=== PATIENT | male | born 1960 | race Two or more races ===

== ENCOUNTER 2024-03-13 12:28 | Emergency (ER) | payer BC, SELFPAY ==
[2024-03-13 12:29] VITALS: BMI 29.6
--- NOTE | 2024-03-13 12:32 | EKG_ITS ---
[facility] Test Date: 2024-03-13 Pat Name: JAY MODI Department: Room: - Gender: Male Galley Hand: : 1960 Requested By: ED Temporary Provider Order Number: [id number] Reading MD: ED Temporary Provider Measurements Intervals [place] Rate: 86 P: 8 OH: 132 QRS: -18 QRSD: 108 T: 29 QT: 335 QTc: 401 Interpretive Statements SINUS RHYTHM Compared to ECG 04/22/2022 08:46:17 No significant changes /store/S0/[id number].pdf
[2024-03-13 13:45] VITALS: BP 135/89; PULSE 97; RESP 18; TEMP 37.4; O2SAT 98
--- NOTE | 2024-03-13 13:58 | XR_ITS ---
Examination: PA lateral chest 2 views Chest upright PA lateral 2 views Exam date and time: March 13, 2024 1431 hours INDICATIONS: Chest pain today. FINDINGS: Normal heart size Lungs are clear. The osseous structures are intact IMPRESSION: No active disease
--- NOTE | 2024-03-13 13:58 | PD.EDRME ---
Rapid Medical Screening Exam [facility] Arrival date/time: 03/13/24 12:28 63-year-old male history of diabetes presents to the emergency department with complaints of left upper chest pain began about 4 days ago mainly in his left shoulder. I have greeted and performed a focused initial assessment of this patient. Initial appropriate labs ordered at this time. A comprehensive ED assessment and evaluation of the patient and analysis of all test and completion of medical decision making process will be conducted by additional ED provider. Chief Complaint: Extremity Injury, Upper Time Seen by Provider: 03/13/24 13:54 Vital signs: Vital Signs Temperature 99.4 F 03/13/24 13:45 Pulse Rate 97 03/13/24 13:45 Respiratory Rate 18 03/13/24 13:45 Blood Pressure 135/89 H 03/13/24 13:45 Pulse Oximetry (%) 98 03/13/24 13:45 Oxygen Delivery Method Room Air 03/13/24 13:45
[2024-03-13 14:30] LABS: Basophils % (Auto) 0 % (0-2.5); Eosinophils # (Auto) 0.2 Thou/mm3 (0.0-0.5); Eosinophils % (Auto) 2 % (0-10); Hematocrit 44.1 % (41.0-53.0); Hemoglobin 14.5 g/dL (13.5-16.0); Immature Granulocytes % (Auto) 0 % (0-0); Immature Granulocytes Auto 0.02 Thou/mm3 (0.00-0.00); Lymphocytes # (Auto) 1.9 Thou/mm3 (1.0-4.8); Lymphocytes % (Auto) 21 % (10-50); Mean Corpuscular HGB Conc 32.9 g/dl (31.0-37.0); Mean Corpuscular Hemoglobin 26.3 pg (25.0-35.0); Mean Corpuscular Volume 80 fL (80-100); Monocytes # (Auto) 0.6 Thou/mm3 (0.0-0.8); Monocytes % (Auto) 7 % (0-12); Neutrophils # (Auto) 6.3 Thou/mm3 (1.8-7.7); Neutrophils % (Auto) 70 % (37-80); Nucleated Red Blood Cell % 0 /100 WBC (0); Platelet Count 197 Thou/mm3 (140-440); RDW Standard Deviation 41.1 fL (35.1-43.9); Red Blood Count 5.52 Miln/mm3 (4.50-5.90); White Blood Count 9.1 Thou/mm3 (3.8-10.6)
[2024-03-13 14:46] LABS: Prothrombin Time 11.1 Seconds (9.0-12.2)
[2024-03-13] MEDS: ONDANSETRON ODT 4 MG TABRAP PO (14:46)
[2024-03-13 14:49] LABS: B-Type Natriuretic Peptide < 20 pg/mL (0-100)
[2024-03-13 14:52] LABS: Alanine Aminotransferase 25 U/L (10-49); Albumin, Serum 5.1 gm/dL (3.4-4.8); Alkaline Phosphatase 86 U/L (46-116); Anion Gap 10 (7-16); Aspartate Amino Transferase 22 U/L (0-34); BUN/Creatinine Ratio 25 Ratio (12-20); Bilirubin,Total 0.6 mg/dL (0.3-1.2); Blood Urea Nitrogen 20 mg/dL (9-23); Carbon Dioxide 26.1 mMol/L (20.0-31.0); Chloride 105 mMol/L (98-107); Creatinine (Component) 0.8 mg/dL (0.6-1.3); Estimated Creatinine Clearance 104.8 mL/min (>60); Globulin 2.6 gm/dL (2.3-3.5); Glucose 110 mg/dL (74-106); Lipase 50 U/L (12-53); Magnesium 1.7 mg/dL (1.6-2.6); Osmolality,Calculated 284 (275-295); Potassium 4.1 mMol/L (3.4-5.1); Sodium 141 mMol/L (136-145); Total Protein 7.7 gm/dL (5.7-8.2); Troponin I < 0.002 ng/mL (0.0-0.045); eGFR > 60 See Note
--- NOTE | 2024-03-13 18:50 | PD.EDADULT ---
ED General RME/HPI General Chief complaint: Extremity Injury, Upper Stated complaint: LEFT SHOULDER/BACK BURNING SENSATION x4 DAYS Time Seen by Provider: 03/13/24 13:54 Arrival date/time: 03/13/24 12:28 CC: Burning sensation starting at left mid back and wrapping around to the anterior chest HPI ongoing for the past 3 days insidious onset denies rash fever chills shortness of breath or difficulty breathing pain is described as burning sensation 2-3 out of 10 scale constant. No prior history of similar events patient has a history of diabetes. No other complaints RME / HPI RME / HPI narrative: 03/13/24 12:28 63-year-old male history of diabetes presents to the emergency department with complaints of left upper chest pain began about 4 days ago mainly in his left shoulder. I have greeted and performed a focused initial assessment of this patient. Initial appropriate labs ordered at this time. A comprehensive ED assessment and evaluation of the patient and analysis of all test and completion of medical decision making process will be conducted by additional ED provider. Patient states he has already had shingles shot series. Related Data Home Medications ?Medication ?Instructions ?Recorded ?Confirmed atorvastatin 40 mg tablet 40 mg PO DAILY 04/22/22 04/22/22 ergocalciferol (vitamin D2) 1,250 See Rx Instructions .Route .COMPLEX 04/22/22 04/22/22 mcg (50,000 unit) capsule glipizide 5 mg tablet 5 mg PO DAILY 04/22/22 04/22/22 losartan 50 mg tablet 50 mg PO DAILY 04/22/22 04/23/22 metformin 1,000 mg tablet 1,000 mg PO BID 04/22/22 04/22/22 Previous Rx's ?Medication ?Instructions ?Recorded acyclovir 400 mg tablet 400 mg PO QID #20 tabs 03/13/24 meloxicam 7.5 mg tablet 7.5 mg PO QDAY #10 tabs 03/13/24 Allergies Allergy/AdvReac Type Severity Reaction Status Date / Time No Known Allergies Allergy Verified 03/13/24 12:31 Review of Systems Review of Systems Narrative Review of Systems: GEN: No fever, no chills, no weight loss EYES: No discharge, no visual changes, no pain HEENT: No ear pain, no congestion, no sore throat PULM: No shortness of breath, no cough, no congestion CV: + chest pain, no dyspnea on exertion, no palpitations GI: No nausea, no vomiting, no diarrhea, + pain, no constipation : No frequency, no urgency, no dysuria MUSC/SKEL: No joint pain, no back pain SKIN: No rash PSYCH: No hallucinations, no depression HEME/LYMPH: No easy bleeding or bruising tendencies NEURO: No weakness, no headache Past Medical History Past Medical History NEUROLOGIC: Negative Neurological Disorders or Seizures CARDIAC: Positive Hypercholesterolemia and Hypertension; Negative Congestive Heart Failure RESPIRATORY: Negative Chronic Obstructive Pulmonary Disease (COPD) GASTROINTESTINAL: Negative Gastrointestinal Disorders GENITOURINARY: Negative Genitourinary Disorders or Renal Disease MUSCULOSKELETAL: Negative Musculoskeletal Disorders ENDOCRINE: Positive Endocrine Disorders and Diabetes Mellitus Type 2; Negative Diabetes Mellitus Type 1 HEMATOLOGIC: Negative Blood Disorders OTHER HISTORY: Negative Autoimmune Disease, Blood Transfusions, Anesthesia Reactions, Chicken Pox, Measles, Mumps, Rubella (Cub[place] Measles) or Cancer Family History FAMILY HISTORY: Positive Family Cancer (dad) Social History SMOKING STATUS: Never smoker ED Exam Narrative Physical exam: [General: Not in any acute distress Head normocephalic HEENT: Within acceptable limits Neck is supple nontender Chest equal chest rise nontender to palpation Respiratory: Clear to auscultation no wheezes crackles or rubs CV: Rate rhythm is regular no murmurs rubs or clicks Abdomen is distended secondary to body habitus soft nontender no masses positive bowel sounds all 4 quadrants Back: Tenderness in the left mid back mid thoracic region wrapping around is reproducible with palpation in the paraspinal region mid thoracic, but not reproducible in the mid axillary line or on the anterior chest wall. No CVA tenderness no spinous process tenderness from cervical spine thoracic and lumbar spine Skin: No dermatomal rash on the back. No pustules or papules. Skin is intact no petechiae rash induration ulceration or crepitus Extremities: Moving all extremity against resistance cap refill less than 2 seconds neurosensory intact Neuro: Awake alert oriented x3 Glascow coma 15 no focal deficits] Course Quality Measures none Orders Category Date Time Status EKG (ED ONLY) *Do not use* NOW Care 03/13/24 12:32 Completed EKG (ED Only) Stat Exams 03/13/24 12:32 Draft XR chest 2V Stat Exams 03/13/24 13:58 Completed B-Type Natriuretic Peptide Stat Lab 03/13/24 14:15 Completed CBC Stat Lab 03/13/24 14:15 Completed Comprehensive Metabolic Panel Stat Lab 03/13/24 14:15 Completed Lipase Stat Lab 03/13/24 14:15 Completed Magnesium Stat Lab 03/13/24 14:15 Completed Partial Thromboplastin Time Stat Lab 03/13/24 14:15 Completed Prothrombin Time with INR Stat Lab 03/13/24 14:15 Completed Troponin I Stat Lab 03/13/24 14:15 Completed Ondansetron Odt [Zofran Odt] Med 03/13/24 13:58 Discontinued 4 mg PO X1 ONE Vital Signs Vital signs: Vital Signs Temperature 99.4 F 03/13/24 13:45 Pulse Rate 97 03/13/24 13:45 Respiratory Rate 18 03/13/24 13:45 Blood Pressure 135/89 H 03/13/24 13:45 Pulse Oximetry (%) 98 03/13/24 13:45 Oxygen Delivery Method Room Air 03/13/24 13:45 MDM Patient data External records reviewed:: [facility] previous records Clinical information provided by:: patient Social determinants that could affect healthcare access:: none Patient has the following chronic illnesses:: Diabetes How is presenting disease/condition affected by chronic disease/condition?: uneffected by Evaluation data The following diagnostics were reviewed and interpreted by me:: lab results and radiology exam(s) Lab and/or radiology exams considered but not ordered:: CBC shows no acute leukocytosis anemia thrombocytopenia CMP shows no acute electrolyte imbalances other than a mildly elevated glucose no renal impairment transaminitis or T. bili elevation Troponin is negative BNP is negative X-ray is negative for any acute finding. Interpretation Summary: There is no clinical finding rash etc. that would indicate shingles however it is a burning sensation on a clear dermatome left T3/T4. Patient be discharged home with meloxicam, and acyclovir to follow-up with her primary care provider patient is in agreement with this plan. Medications Medications considered but not ordered:: None Medication administrations:: Medication Administration History Discontinued Medications Ondansetron HCl (Ondansetron Odt 4 Mg Tabrap) 4 mg PO X1 ONE Stop: 03/13/24 13:59 Last Admin: 03/13/24 14:46 Dose: 4 mg Documented By: KF None Consultations Consultation(s) initiated? (list below): No Diagnosis Differential Diagnosis ED Complaint MDM: Hyperesthesia, shingles, ACS MT Most likely diagnosis given after review of the tests above:: Paresthesia Admission Indicated Admission indicated?: not indicated Explain why admission is indicated or not indicated:: Stable for outpatient follow-up Admission Request Was there a request for admission?: No Disposition Plan Disposition Plan: Discharge Discharge Attestation Discharge Attestation: The patient and all family members were given an opportunity to ask questions and understood the discharge instructions. Discharge instructions specifically effects, indications for sooner follow up or return to the emergency department, and the expected course of current diagnosis. Patient condition: Stable Medical Decision Making Differential Diagnosis Differential Diagnosis: Hyperesthesia, shingles, ACS MT Lab Data 03/13/24 14:15 03/13/24 14:15 Labs: Lab Results 03/13/24 Range/Units 14:15 WBC 9.1 (3.8-10.6) Thou/mm3 RBC 5.52 (4.50-5.90) Miln/mm3 Hgb 14.5 (13.5-16.0) g/dL Hct 44.1 (41.0-53.0) % MCV 80 (80-100) fL MCH 26.3 (25.0-35.0) pg MCHC 32.9 (31.0-37.0) g/dl RDW Std Deviation 41.1 (35.1-43.9) fL Plt Count 197 (140-440) Thou/mm3 Neut % (Auto) 70 (37-80) % Lymph % (Auto) 21 (10-50) % [place] % (Auto) 7 (0-12) % Eos % (Auto) 2 (0-10) % Baso % (Auto) 0 (0-2.5) % Neut # (Auto) 6.3 (1.8-7.7) Thou/mm3 Lymph # (Auto) 1.9 (1.0-4.8) Thou/mm3 [place] # (Auto) 0.6 (0.0-0.8) Thou/mm3 Eos # (Auto) 0.2 (0.0-0.5) Thou/mm3 Baso # (Auto) 0.0 (0.0-0.2) Thou/mm3 Immature Gran # (Auto) 0.02 H (0.00-0.00) Thou/mm3 Absolute Nucleated RBC 0.00 (0.00-0.00) Thou/mm3 Immature Gran % 0 (0-0) % Nucleated RBC % 0 (0) /100 WBC PT 11.1 (9.0-12.2) Seconds INR 1.0 (0.9-1.3) APTT 27.0 (22.0-36.0) Seconds Sodium 141 (136-145) mMol/L Potassium 4.1 (3.4-5.1) mMol/L Chloride 105 (98-107) mMol/L Carbon Dioxide 26.1 (20.0-31.0) mMol/L Anion Gap 10 (7-16) BUN 20 (9-23) mg/dL Creatinine 0.8 (0.6-1.3) mg/dL Estim Creat Clear Calc 104.8 (>60) mL/min eGFR > 60 (60 - ) See Note BUN/Creatinine Ratio 25 H (12-20) Ratio Glucose 110 H (74-106) mg/dL Calculated Osmolality 284 (275-295) Calcium 10.0 (8.3-10.6) mg/dL Corrected Calcium 10.0 (8.5-10.1) mg/dL Magnesium 1.7 (1.6-2.6) mg/dL Total Bilirubin 0.6 (0.3-1.2) mg/dL AST 22 (0-34) U/L ALT 25 (10-49) U/L Alkaline Phosphatase 86 (46-116) U/L Troponin I < 0.002 (0.0-0.045) ng/mL B-Natriuretic Peptide < 20 (0-100) pg/mL Total Protein 7.7 (5.7-8.2) gm/dL Albumin 5.1 H (3.4-4.8) gm/dL Globulin 2.6 (2.3-3.5) gm/dL Albumin/Globulin Ratio 2.0 (1.2-2.2) Lipase 50 (12-53) U/L Discharge Plan Plan Patient Disposition: HOME (Self Care) Patient condition on transfer: Stable Prescriptions/Referrals Prescriptions/Med Rec: New acyclovir 400 mg tablet 400 mg PO QID Qty: 20 0RF meloxicam 7.5 mg tablet 7.5 mg PO QDAY Qty: 10 0RF No Action losartan 50 mg tablet 50 mg PO DAILY atorvastatin 40 mg tablet 40 mg PO DAILY metformin 1,000 mg tablet 1,000 mg PO BID ergocalciferol (vitamin D2) 1,250 mcg (50,000 unit) capsule See Rx Instructions .ROUTE .COMPLEX Rx Instructions: i cap on wednesday glipizide 5 mg tablet 5 mg PO DAILY Referrals: No Primary/Family,Physician [Primary Care Provider] - In 1 week Danie Corley MD [Physician] - In 1 week Problem List Clinical Impression: Paresthesia Patient/Caregiver Discharge Instructions Education Materials: ED Paraesthesias Print Language: Brazilian Stand Alone Forms: Brea Award Info., Patient Portal Info Letter, Work/School Release PA/VENEER JOINER Supervising Physician PA/VENEER JOINER Supervising Physician: Rodríguez Estrada ENP
[2024-03-13 19:32] VITALS: BP 125/85; PULSE 66; RESP 18; TEMP 37.2; O2SAT 99
== END 2024-03-13 20:21 | disposition home or self-care (01) ==
PROVIDERS: Nurse Practitioner Primary Care; Emergency Provider Emergency Medicine
DX: R20.2 Paresthesia of skin (principal); R07.9 Chest pain, unspecified; E78.00 Pure hypercholesterolemia, unspecified; I10 Essential (primary) hypertension
CPT/HCPCS: 36415; 71046; 80053; 83690; 83735; 83880; 84484; 85025; 85610; 85730; 93005; 99283; Q0162